=== PATIENT | female | born 1960 | race Caucasian/White ===

== ENCOUNTER 2018-09-15 18:28 | Inpatient (IN) | payer BC ==
[2018-09-15] MEDS ORDERED: Sodium Chloride 0.9% 1,000 ML IV ONE (18:38)
[2018-09-15] MEDS ORDERED: Ondansetron 4 MG/2 ML SDV IVPUSH PRN (18:57)
--- NOTE | 2018-09-15 19:03 | EDM.PDOC ---
ED HPI GENERAL MEDICAL PROBLEM - General Chief Complaint: Gastrointestinal Problem Stated Complaint: N/V/D Time Seen by Provider: 09/15/18 18:48 Source of Information: Reports: Patient History Limitations: Reports: No Limitations - History of Present Illness INITIAL COMMENTS - FREE TEXT/NARRATIVE: Alda is a 58 year old female who presents to the ED with c/o nausea, diarrhea, and bloody stools. She reports starting last evening around 0200 she started vomiting. Reports since then she has had episodes where she has been on the toilet for ~1 hour either vomiting or having loose stools. She reports she has been able to drink about 30 oz of water today. Has not had appetite. Denies any abdominal pain. She reports that just this evening she noticed that her diarrhea was bloody. Reports got to a point where it was just blood, without much feces. She does have container with obvious bright red blood. She denies any hemorrhoids. Has not noted fever, but does report had episode last night where she felt very warm and almost pre-syncopal. Does have 100.2 deg temp in ED. She reports she has never had a colonoscopy. Does have family history of colon cancer. Onset: Today Onset Date: 09/15/18 Onset Time: 02:00 Duration: Getting Worse Associated Symptoms: Reports: Fever/Chills, Headaches, Loss of Appetite, Nausea/ Vomiting. Denies: Confusion, Chest Pain, Cough, cough w sputum, Diaphoresis, Malaise, Rash, Seizure, Shortness of Breath, Syncope, Weakness - Related Data Allergies Allergy/AdvReac Type Severity Reaction Status Date / Time naproxen Allergy Itching Verified 09/15/18 18:58 CT contrast Allergy Facial Uncoded 09/15/18 23:39 Swelling Home Meds: Home Meds ALPRAZolam [Alprazolam] 0.25 - 0.5 mg PO BEDTIME PRN 09/15/18 [History] Acetaminophen [Acetaminophen 8 Hour] 650 mg PO Q4H PRN 09/15/18 [History] Albuterol Sulfate [Proair Hfa] 2 puff IH Q4H PRN 09/15/18 [History] Ascorbic Acid [Vitamin C] 1,000 mg PO DAILY 09/15/18 [History] Aspirin 81 mg PO DAILY 09/15/18 [History] B-Complex with Vitamin C [Super B Complex-Vitamin C] 1 each PO DAILY 09/15/18 [ History] Candesartan/Hydrochlorothiazid [Candesartan-Hctz 32-12.5 mg Tb] 1 each PO BEDTIME 09/15/18 [History] Cholecalciferol (Vitamin D3) [Vitamin D3] 4,000 unit PO DAILY 09/15/18 [History] Citalopram Hydrobromide [Celexa] 10 mg PO DAILY 09/15/18 [History] Ibuprofen 200 mg PO QAM 09/15/18 [History] Levothyroxine 112 mcg PO DAILY 09/15/18 [History] Magnesium 250 mg PO DAILY 09/15/18 [History] Pantoprazole Sodium 40 mg PO DAILY 09/15/18 [History] atorvaSTATin [Lipitor] 20 mg PO BEDTIME 09/15/18 [History] ED ROS GENERAL - Review of Systems Review Of Systems: See Below Constitutional: Reports: Fever, Weakness, Fatigue, Decreased Appetite HEENT: Reports: No Symptoms Respiratory: Reports: No Symptoms. Denies: Shortness of Breath, Cough Cardiovascular: Reports: Palpitations (tachycardia on presentation). Denies: Chest Pain Endocrine: Reports: No Symptoms GI/Abdominal: Reports: Bloody Stool, Diarrhea, Decreased Appetite, Hematochezia , Nausea, Vomiting. Denies: Abdominal Pain, Hematemesis : Reports: No Symptoms. Denies: Dysuria, Frequency, Hematuria, Urgency Musculoskeletal: Reports: No Symptoms Skin: Reports: No Symptoms Neurological: Reports: No Symptoms Psychiatric: Reports: No Symptoms Hematologic/Lymphatic: Reports: No Symptoms Immunologic: Reports: No Symptoms ED EXAM, GI/ABD - Physical Exam Exam: See Below Exam Limited By: No Limitations General Appearance: Alert, WD/WN, No Apparent Distress Head: Atraumatic, Normocephalic Neck: Normal Inspection, Supple, Non-Tender, Full Range of Motion Respiratory/Chest: No Respiratory Distress, Lungs Clear, Normal Breath Sounds, No Accessory Muscle Use, Chest Non-Tender Cardiovascular: Normal Peripheral Pulses, Regular Rate, Rhythm, No Edema, No Murmur, Tachycardia GI/Abdominal Exam: Normal Bowel Sounds, Soft, Non-Tender, No Organomegaly, No Distention Back Exam: Normal Inspection, Full Range of Motion. No: CVA Tenderness (L), CVA Tenderness (R) Extremities: Normal Inspection, Normal Range of Motion, Non-Tender, Normal Capillary Refill, No Pedal Edema Neurological: Alert, Oriented, CN II-XII Intact, Normal Cognition, Normal Gait, Normal Reflexes, No Motor/Sensory Deficits Psychiatric: Normal Affect, Normal Mood Skin Exam: Warm, Dry, Intact, Normal Color, No Rash Lymphatic: No Adenopathy Course - Vital Signs Last Recorded V/S: Last Vital Signs Temp 99 F 09/16/18 12:00 Pulse 80 09/16/18 12:00 Resp 16 09/16/18 12:00 BP 141/70 H 09/16/18 12:00 Pulse Ox 96 09/16/18 12:00 - Orders/Labs/Meds Orders: Active Orders 24 hr Category Date Time Status Abdomen Pelvis w Cont [CT] Stat Exams 09/15/18 19:25 Taken C DIFFICILE BY DNA [RM] Stat Lab 09/15/18 18:40 Ordered STOOL CULTURE [MREF] Stat Lab 09/15/18 18:40 Ordered Ondansetron [Zofran] Med 09/15/18 18:57 Active 4 mg IVPUSH Q6H PRN EKG 12 Lead [EK] Routine Ther 09/15/18 18:39 Stop Req Medication Orders Acetaminophen (Tylenol) 650 mg PO Q4H PRN PRN Reason: Pain (Mild 1-3)/fever Albuterol (Ventolin Hfa) 0 gm INH Q4H PRN PRN Reason: shortness of breath Alprazolam (Xanax) 0.25 - 0.5 mg PO BEDTIME PRN PRN Reason: Anxiety Atorvastatin Calcium (Lipitor) 20 mg PO BEDTIME [facility] Citalopram Hydrobromide (Celexa) 10 mg PO DAILY [facility] Last Admin: 09/16/18 13:42 Dose: 10 mg Hydrochlorothiazide (Hydrochlorothiazide) 12.5 mg PO BEDTIME [facility] Levofloxacin/Dextrose 500 mg/ (Premix) 100 mls @ 100 mls/hr IV Q24H [facility] Last Admin: 09/16/18 00:03 Dose: 100 mls/hr Metronidazole 500 mg/ Premix 100 mls @ 100 mls/hr IV Q8H [facility] Last Admin: 09/16/18 08:24 Dose: 100 mls/hr Infusion: 09/16/18 02:17 Dose: 100 mls/hr Admin: 09/16/18 01:17 Dose: 100 mls/hr Ibuprofen (Motrin) 800 mg PO Q6H PRN PRN Reason: Pain (mild 1-3) Levothyroxine Sodium (Levothyroxine) 112 mcg PO ACBREAKFAST KENDRA Last Admin: 09/16/18 13:42 Dose: 112 mcg Losartan Potassium (Cozaar) 100 mg PO BEDTIME [facility] Ondansetron HCl (Zofran) 4 mg IVPUSH Q6H PRN PRN Reason: Nausea Last Admin: 09/15/18 19:08 Dose: 4 mg Pantoprazole Sodium (Protonix Iv) 40 mg IVPUSH Q24H [facility] Last Admin: 09/16/18 13:42 Dose: 40 mg Labs: Laboratory Tests 09/15/18 09/15/18 09/15/18 Range/Units 18:38 18:38 18:38 WBC 8.6 (5.0-10.0) 10^3/uL RBC 4.16 (4.00-5.50) 10^6/uL Hgb 12.7 (12.0-16.0) g/dL Hct 39.0 (37.0-47.0) % MCV 93.8 (82.0-94.0) fL MCH 30.5 (27.0-32.0) pg MCHC 32.6 L (33.0-38.0) g/dL RDW Coeff of Jim 13.4 (11.0-15.0) % Plt Count 222 (150-400) 10^3/uL Neut % (Auto) 76.7 (35-85) % Lymph % (Auto) 15.2 (10-55) % Alfalfa % (Auto) 7.3 (0-16) % Eos % (Auto) 0.6 (0-5) % Baso % (Auto) 0.2 (0-3) % Neut # (Auto) 6.60 (1.80-7.00) 10^3/uL Lymph # (Auto) 1.31 (1.00-4.80) 10^3/uL Alfalfa # (Auto) 0.63 (0.00-0.80) 10^3/uL Eos # (Auto) 0.05 (0.00-0.45) 10^3/uL Baso # (Auto) 0.02 10^3/uL Sodium 140 (136-145) mEq/L Potassium 3.3 L D (3.5-5.0) mEq/L Chloride 102 (98-106) mEq/L Carbon Dioxide 25 (21-32) mmol/L BUN 13 (7-18) mg/dL Creatinine 0.9 (0.6-1.0) mg/dL Est Cr Clr Drug Dosing 61.31 mL/min Estimated GFR (MDRD) > 60 (>=60) mL/min Glucose 118 H (75-99) mg/dL Lactic Acid (0.4-2.0) mmol/L Calcium 9.2 (8.4-10.1) mg/dL Total Bilirubin 0.7 (0.0-1.0) mg/dL AST 31 (15-37) U/L ALT 46 (12-78) U/L Alkaline Phosphatase 89 (46-116) U/L C-Reactive Protein 2.2 H (0.2-0.8) mg/dL Total Protein 7.4 (6.4-8.2) g/dL Albumin 3.8 (3.4-5.0) g/dL Urine Color Yellow (YELLOW) Urine Appearance Clear (CLEAR) Urine pH 7.0 (4.5-8.0) Ur Specific [place] 1.015 (1.003-1.020) Urine Protein Negative (NEGATIVE) mg/dL Urine Glucose (UA) Negative (NEGATIVE) mg/dL Urine Ketones Trace H (NEGATIVE) mg/dL Urine Occult Blood Trace-intact H (NEGATIVE) Urine Nitrite Negative (NEGATIVE) Urine Bilirubin Negative (NEGATIVE) Urine Urobilinogen 0.2 (0.2-1.0) EU/dL Ur Leukocyte Esterase Negative (NEGATIVE) Urine RBC 0-5 (0-5) /HPF Urine WBC Not seen (0-5) /HPF 09/15/18 Range/Units 18:43 WBC (5.0-10.0) 10^3/uL RBC (4.00-5.50) 10^6/uL Hgb (12.0-16.0) g/dL Hct (37.0-47.0) % MCV (82.0-94.0) fL MCH (27.0-32.0) pg MCHC (33.0-38.0) g/dL RDW Coeff of Jim (11.0-15.0) % Plt Count (150-400) 10^3/uL Neut % (Auto) (35-85) % Lymph % (Auto) (10-55) % Alfalfa % (Auto) (0-16) % Eos % (Auto) (0-5) % Baso % (Auto) (0-3) % Neut # (Auto) (1.80-7.00) 10^3/uL Lymph # (Auto) (1.00-4.80) 10^3/uL Al[place]alfa # (Auto) (0.00-0.80) 10^3/uL Eos # (Auto) (0.00-0.45) 10^3/uL Baso # (Auto) 10^3/uL Sodium (136-145) mEq/L Potassium (3.5-5.0) mEq/L Chloride (98-106) mEq/L Carbon Dioxide (21-32) mmol/L BUN (7-18) mg/dL Creatinine (0.6-1.0) mg/dL Est Cr Clr Drug Dosing mL/min Estimated GFR (MDRD) (>=60) mL/min Glucose (75-99) mg/dL Lactic Acid 3.2 H (0.4-2.0) mmol/L Calcium (8.4-10.1) mg/dL Total Bilirubin (0.0-1.0) mg/dL AST (15-37) U/L ALT (12-78) U/L Alkaline Phosphatase (46-116) U/L C-Reactive Protein (0.2-0.8) mg/dL Total Protein (6.4-8.2) g/dL Albumin (3.4-5.0) g/dL Urine Color (YELLOW) Urine Appearance (CLEAR) Urine pH (4.5-8.0) Ur Specific [place] (1.003-1.020) Urine Protein (NEGATIVE) mg/dL Urine Glucose (UA) (NEGATIVE) mg/dL Urine Ketones (NEGATIVE) mg/dL Urine Occult Blood (NEGATIVE) Urine Nitrite (NEGATIVE) Urine Bilirubin (NEGATIVE) Urine Urobilinogen (0.2-1.0) EU/dL Ur Leukocyte Esterase (NEGATIVE) Urine RBC (0-5) /HPF Urine WBC (0-5) /HPF Meds: Medications Generic Name Dose Route Start Last Admin Trade Name Freq PRN Reason Stop Dose Admin Acetaminophen 650 mg 09/15/18 23:31 Tylenol PO Q4H PRN Pain (Mild 1-3)/fever Albuterol 0 gm 09/16/18 12:30 Ventolin Hfa INH Q4H PRN shortness of breath Alprazolam 0.25 - 0.5 mg 09/16/18 12:23 Xanax PO BEDTIME PRN Anxiety Atorvastatin Calcium 20 mg 09/16/18 20:00 Lipitor PO BEDTIME KENDRA Citalopram Hydrobromide 10 mg 09/16/18 12:30 09/16/18 13:42 Celexa PO 10 mg DAILY KENDRA Administration Hydrochlorothiazide 12.5 mg 09/16/18 20:00 Hydrochlorothiazide PO BEDTIME KENDRA Levofloxacin/Dextrose 500 mg/ 100 mls @ 100 mls/hr 09/15/18 23:31 09/16/18 00 :03 Premix IV 100 mls/hr Q24H KENDRA Administration Metronidazole 500 mg/ Premix 100 mls @ 100 mls/hr 09/16/18 00:00 09/16/18 08: 24 IV 100 mls/hr Q8H KEN[facility] Administration Ibuprofen 800 mg 09/15/18 23:31 Motrin PO Q6H PRN Pain (mild 1-3) Levothyroxine Sodium 112 mcg 09/16/18 12:30 09/16/18 13:42 Levothyroxine PO 112 mcg ACBREAKFAST KENDRA Administration Losartan Potassium 100 mg 09/16/18 20:00 Cozaar PO BEDTIME KENDRA Ondansetron HCl 4 mg 09/15/18 18:57 09/15/18 19:08 Zofran IVPUSH 4 mg Q6H PRN Administration Nausea Pantoprazole Sodium 40 mg 09/16/18 12:30 09/16/18 13:42 Protonix Iv IVPUSH 40 mg Q24H KENDRA Administration Discontinued Medications Generic Name Dose Route Start Last Admin Trade Name Freq PRN Reason Stop Dose Admin Enoxaparin Sodium 40 mg 09/15/18 23:31 09/16/18 00:31 Lovenox SUBCUT Not Given Q24H KENDRA Sodium Chloride 1,000 mls @ 999 mls/hr 09/15/18 18:38 02/23/19 18:55 Normal Saline IV 09/15/18 19:38 999 mls/hr .BOLUS ONE Administration Metronidazole 500 mg/ Premix 100 mls @ 100 mls/hr 09/15/18 23:31 09/16/18 00: 31 IV Not Given Q8H KENDRA Sodium Chloride 1,000 mls @ 75 mls/hr 09/15/18 23:31 09/16/18 00:03 Normal Saline IV 75 mls/hr ASDIRECTED KENDRA Administration Iopamidol 100 ml 09/15/18 22:18 09/15/18 22:29 Isovue-300 (61%) IVPUSH 09/15/18 22:19 100 ml ONETIME ONE Administration - Radiology Interpretation Free Text/Narrative:: CT reveals moderate length of colitis, favorable to be infectious/inflammatory. CT Results Date: 09/15/18 CT Results Time: 23:13 - Re-Assessments/Exams Free Text/Narrative Re-Assessment/Exam: 09/15/18 19:26 Labs stable except elevated lactic acid to 3.2. In presence of GI bleed, diarrhea, tachycardia, and fever, will proceed with CT abdomen/pelvis. Will keep patient in extended ED pending CT results. Pulse improved to upper 90s. Patient started to drink oral contrast. 09/15/18 23:[address] with [address] results. Ct reveals moderate length of colitis, favorable to be infectious/inflammatory. No evidence of ischemia. Will admit acute for IVF and antibiotics. Free Text/Narrative Re-Assessment/Exam: PLEASE SEE NURSES NOTE FOR PMH, PSH, SH, & FH. Departure - Departure Time of Disposition: 23:13 Disposition: Admitted As Inpatient 66 Condition: Good Clinical Impression: Colitis, Lower GI bleed Hypertension Qualifiers: Hypertension type: essential hypertension Qualified Code(s): I10 - Essential ( primary) hypertension - Discharge Information *PRESCRIPTION DRUG MONITORING PROGRAM REVIEWED*: Not Applicable *COPY OF PRESCRIPTION DRUG MONITORING REPORT IN PATIENT [place]: Not Applicable - Problem List & Annotations (1) Colitis SNOMED Code(s): 45552127 Code(s): K52.9 - NONINFECTIVE GASTROENTERITIS AND COLITIS, UNSPECIFIED Status: Acute Current Visit: Yes (2) Hypertension SNOMED Code(s): 40180972 Code(s): I10 - ESSENTIAL (PRIMARY) HYPERTENSION Status: Acute Current Visit: Yes Qualifiers: Hypertension type: essential hypertension Qualified Code(s): I10 - Essential (primary) hypertension (3) Lower GI bleed SNOMED Code(s): 71979936 Code(s): K92.2 - GASTROINTESTINAL HEMORRHAGE, UNSPECIFIED Status: Acute Current Visit: Yes - Problem List Review Problem List Initiated/Reviewed/Updated: Yes - My Orders Last 24 Hours: My Active Orders 09/15/18 18:39 EKG 12 Lead [EK] Routine 09/15/18 18:40 C DIFFICILE BY DNA [RM] Stat STOOL CULTURE [MREF] Stat 09/15/18 18:57 Ondansetron [Zofran] 4 mg IVPUSH Q6H PRN 09/15/18 19:25 Abdomen Pelvis w Cont [CT] Stat - Assessment/Plan Admission H&P: Please use this note as an admission H&P Last 24 Hours: My Active Orders 09/15/18 18:39 EKG 12 Lead [EK] Routine 09/15/18 18:40 C DIFFICILE BY DNA [RM] Stat STOOL CULTURE [MREF] Stat 09/15/18 18:57 Ondansetron [Zofran] 4 mg IVPUSH Q6H PRN 09/15/18 19:25 Abdomen Pelvis w Cont [CT] Stat Plan: CT reveals moderate length of colitis, likely infectious/inflammatory. No evidence of ischemia. Gross blood in stool. Patient will need colonoscopy in future. Hemoglobin stable at 12.7. Will admit acute for IVF and IV antibiotics. Stool studies pending. Repeat labs in am. Anticipate length of stay 2-3 days.
[2018-09-15 19:14] LABS: CHLORIDE,CL 102 mEq/L (98-106); SODIUM,NA 140 mEq/L (136-145)
[2018-09-15] MEDS ORDERED: Iopamidol 612 MG/ML 100 ML Bottle IVPUSH ONE (22:18)
[2018-09-15] MEDS ORDERED: metroNIDAZOLE/Normal Saline 500 MG in Premix Bag 1 BAG IV SCH (23:31)
[2018-09-15] MEDS ORDERED: Acetaminophen 325 MG Tab PO PRN (23:31)
[2018-09-15] MEDS ORDERED: Ibuprofen 200 MG Tab PO PRN (23:31)
[2018-09-15] MEDS ORDERED: Enoxaparin 40 MG/0.4 ML Syringe SUBCUT SCH (23:31)
[2018-09-15] MEDS ORDERED: Sodium Chloride 0.9% 1,000 ML IV SCH (23:31)
[2018-09-16] MEDS: Levofloxacin/Dextrose 5%-Water 500 MG in Premix Bag 1 BAG IV SCH (00:03)
[2018-09-16] MEDS: metroNIDAZOLE/Normal Saline 500 MG in Premix Bag 1 BAG IV SCH ×4 (01:17→23:34)
[2018-09-16 08:17] LABS: CHLORIDE,CL 105 mEq/L (98-106); SODIUM,NA 144 mEq/L (136-145)
--- NOTE | 2018-09-16 11:22 | PCM.PN ---
- General Info Date of Service: 09/16/18 Subjective Update: Alda is a 58 year old female who was admitted from the ED last evening with colitis and hematochezia. She reports she is feeling much better this morning. Does note she had one small bloody stool throughout the night, but nothing more since admit. She reports she is no longer nauseated. Denies any abdominal pain. Has been tolerating clear liquids. Does report she does not feel hungry, but has been drinking ok. No fevers. VSS. No other complaints. Functional Status: Reports: Pain Controlled, Tolerating Diet, Ambulating, Urinating. Denies: New Symptoms - Review of Systems General: Reports: No Symptoms. Denies: Fever, Weakness, Fatigue, Malaise, Chills HEENT: Reports: No Symptoms Pulmonary: Reports: No Symptoms. Denies: Shortness of Breath, Pleuritic Chest Pain, Cough, Sputum, Hemoptysis, Wheezing Cardiovascular: Reports: No Symptoms. Denies: Chest Pain, Dyspnea on Exertion, Edema, Lightheadedness Gastrointestinal: Reports: Decreased Appetite, Diarrhea, Hematochezia. Denies: Abdominal Pain, Melena, Nausea, Vomiting Genitourinary: Reports: No Symptoms. Denies: Dysuria, Frequency, Urgency Musculoskeletal: Reports: No Symptoms Skin: Reports: No Symptoms Neurological: Reports: No Symptoms Psychiatric: Reports: No Symptoms - Patient Data Vitals - Most Recent: Last Vital Signs Temp 97.9 F 09/16/18 08:00 Pulse 84 09/16/18 08:00 Resp 16 09/16/18 08:00 BP 136/79 09/16/18 08:00 Pulse Ox 95 09/16/18 08:00 Weight - Most Recent: 235 lb 12.8 oz I&O - Last 24 Hours: Intake & Output 09/15/18 09/16/18 09/16/18 22:59 06:59 14:59 Intake Total 100 Balance 100 Lab Results Last 24 Hours: Laboratory Results - last 24 hr 09/15/18 09/15/18 09/15/18 Range/Units 18:38 18:38 18:38 WBC 8.6 (5.0-10.0) 10^3/uL RBC 4.16 (4.00-5.50) 10^6/uL Hgb 12.7 (12.0-16.0) g/dL Hct 39.0 (37.0-47.0) % MCV 93.8 (82.0-94.0) fL MCH 30.5 (27.0-32.0) pg MCHC 32.6 L (33.0-38.0) g/dL RDW Coeff of Jim 13.4 (11.0-15.0) % Plt Count 222 (150-400) 10^3/uL Neut % (Auto) 76.7 (35-85) % Lymph % (Auto) 15.2 (10-55) % Curry % (Auto) 7.3 (0-16) % Eos % (Auto) 0.6 (0-5) % Baso % (Auto) 0.2 (0-3) % Neut # (Auto) 6.60 (1.80-7.00) 10^3/uL Lymph # (Auto) 1.31 (1.00-4.80) 10^3/uL Curry # (Auto) 0.63 (0.00-0.80) 10^3/uL Eos # (Auto) 0.05 (0.00-0.45) 10^3/uL Baso # (Auto) 0.02 10^3/uL Sodium 140 (136-145) mEq/L Potassium 3.3 L D (3.5-5.0) mEq/L Chloride 102 (98-106) mEq/L Carbon Dioxide 25 (21-32) mmol/L BUN 13 (7-18) mg/dL Creatinine 0.9 (0.6-1.0) mg/dL Est Cr Clr Drug Dosing 61.31 mL/min Estimated GFR (MDRD) > 60 (>=60) mL/min Glucose 118 H (75-99) mg/dL Lactic Acid (0.4-2.0) mmol/L Calcium 9.2 (8.4-10.1) mg/dL Total Bilirubin 0.7 (0.0-1.0) mg/dL AST 31 (15-37) U/L ALT 46 (12-78) U/L Alkaline Phosphatase 89 (46-116) U/L C-Reactive Protein 2.2 H (0.2-0.8) mg/dL Total Protein 7.4 (6.4-8.2) g/dL Albumin 3.8 (3.4-5.0) g/dL Urine Color Yellow (YELLOW) Urine Appearance Clear (CLEAR) Urine pH 7.0 (4.5-8.0) Ur Specific Webster 1.015 (1.003-1.020) Urine Protein Negative (NEGATIVE) mg/dL Urine Glucose (UA) Negative (NEGATIVE) mg/dL Urine Ketones Trace H (NEGATIVE) mg/dL Urine Occult Blood Trace-intact H (NEGATIVE) Urine Nitrite Negative (NEGATIVE) Urine Bilirubin Negative (NEGATIVE) Urine Urobilinogen 0.2 (0.2-1.0) EU/dL Ur Leukocyte Esterase Negative (NEGATIVE) Urine RBC 0-5 (0-5) /HPF Urine WBC Not seen (0-5) /HPF 09/15/18 09/16/18 09/16/18 Range/Units 18:43 08:17 08:17 WBC 8.8 (5.0-10.0) 10^3/uL RBC 3.65 L (4.00-5.50) 10^6/uL Hgb 11.2 L (12.0-16.0) g/dL Hct 35.3 L (37.0-47.0) % MCV 96.7 H (82.0-94.0) fL MCH 30.7 (27.0-32.0) pg MCHC 31.7 L (33.0-38.0) g/dL RDW Coeff of Jim 13.7 (11.0-15.0) % Plt Count 190 (150-400) 10^3/uL Neut % (Auto) 69.8 (35-85) % Lymph % (Auto) 19.2 (10-55) % Curry % (Auto) 9.9 (0-16) % Eos % (Auto) 1.0 (0-5) % Baso % (Auto) 0.1 (0-3) % Neut # (Auto) 6.15 (1.80-7.00) 10^3/uL Lymph # (Auto) 1.69 (1.00-4.80) 10^3/uL Curry # (Auto) 0.87 H (0.00-0.80) 10^3/uL Eos # (Auto) 0.09 (0.00-0.45) 10^3/uL Baso # (Auto) 0.01 10^3/uL Sodium 144 (136-145) mEq/L Potassium 3.8 (3.5-5.0) mEq/L Chloride 105 (98-106) mEq/L Carbon Dioxide 28 (21-32) mmol/L BUN 8 (7-18) mg/dL Creatinine 0.8 (0.6-1.0) mg/dL Est Cr Clr Drug Dosing 55.06 mL/min Estimated GFR (MDRD) > 60 (>=60) mL/min Glucose 121 H (75-99) mg/dL Lactic Acid 3.2 H (0.4-2.0) mmol/L Calcium 8.4 (8.4-10.1) mg/dL Total Bilirubin (0.0-1.0) mg/dL AST (15-37) U/L ALT (12-78) U/L Alkaline Phosphatase (46-116) U/L C-Reactive Protein 3.0 H (0.2-0.8) mg/dL Total Protein (6.4-8.2) g/dL Albumin (3.4-5.0) g/dL Urine Color (YELLOW) Urine Appearance (CLEAR) Urine pH (4.5-8.0) Ur Specific Webster (1.003-1.020) Urine Protein (NEGATIVE) mg/dL Urine Glucose (UA) (NEGATIVE) mg/dL Urine Ketones (NEGATIVE) mg/dL Urine Occult Blood (NEGATIVE) Urine Nitrite (NEGATIVE) Urine Bilirubin (NEGATIVE) Urine Urobilinogen (0.2-1.0) EU/dL Ur Leukocyte Esterase (NEGATIVE) Urine RBC (0-5) /HPF Urine WBC (0-5) /HPF 09/16/18 Range/Units 08:17 WBC (5.0-10.0) 10^3/uL RBC (4.00-5.50) 10^6/uL Hgb (12.0-16.0) g/dL Hct (37.0-47.0) % MCV (82.0-94.0) fL MCH (27.0-32.0) pg MCHC (33.0-38.0) g/dL RDW Coeff of Jim (11.0-15.0) % Plt Count (150-400) 10^3/uL Neut % (Auto) (35-85) % Lymph % (Auto) (10-55) % Curry % (Auto) (0-16) % Eos % (Auto) (0-5) % Baso % (Auto) (0-3) % Neut # (Auto) (1.80-7.00) 10^3/uL Lymph # (Auto) (1.00-4.80) 10^3/uL Curry # (Auto) (0.00-0.80) 10^3/uL Eos # (Auto) (0.00-0.45) 10^3/uL Baso # (Auto) 10^3/uL Sodium (136-145) mEq/L Potassium (3.5-5.0) mEq/L Chloride (98-106) mEq/L Carbon Dioxide (21-32) mmol/L BUN (7-18) mg/dL Creatinine (0.6-1.0) mg/dL Est Cr Clr Drug Dosing mL/min Estimated GFR (MDRD) (>=60) mL/min Glucose (75-99) mg/dL Lactic Acid 1.7 (0.4-2.0) mmol/L Calcium (8.4-10.1) mg/dL Total Bilirubin (0.0-1.0) mg/dL AST (15-37) U/L ALT (12-78) U/L Alkaline Phosphatase (46-116) U/L C-Reactive Protein (0.2-0.8) mg/dL Total Protein (6.4-8.2) g/dL Albumin (3.4-5.0) g/dL Urine Color (YELLOW) Urine Appearance (CLEAR) Urine pH (4.5-8.0) Ur Specific Webster (1.003-1.020) Urine Protein (NEGATIVE) mg/dL Urine Glucose (UA) (NEGATIVE) mg/dL Urine Ketones (NEGATIVE) mg/dL Urine Occult Blood (NEGATIVE) Urine Nitrite (NEGATIVE) Urine Bilirubin (NEGATIVE) Urine Urobilinogen (0.2-1.0) EU/dL Ur Leukocyte Esterase (NEGATIVE) Urine RBC (0-5) /HPF Urine WBC (0-5) /HPF Med Orders - Current: Current Medications Acetaminophen (Tylenol) 650 mg PO Q4H PRN PRN Reason: Pain (Mild 1-3)/fever Levofloxacin/Dextrose 500 mg/ (Premix) 100 mls @ 100 mls/hr IV Q24H [facility] Last Admin: 09/16/18 00:03 Dose: 100 mls/hr Sodium Chloride (Normal Saline) 1,000 mls @ 75 mls/hr IV ASDIRECTED [facility] Last Admin: 09/16/18 00:03 Dose: 75 mls/hr Metronidazole 500 mg/ Premix 100 mls @ 100 mls/hr IV Q8H [facility] Last Admin: 09/16/18 08:24 Dose: 100 mls/hr Ibuprofen (Motrin) 800 mg PO Q6H PRN PRN Reason: Pain (mild 1-3) Ondansetron HCl (Zofran) 4 mg IVPUSH Q6H PRN PRN Reason: Nausea Last Admin: 09/15/18 19:08 Dose: 4 mg Discontinued Medications Enoxaparin Sodium (Lovenox) 40 mg SUBCUT Q24H [facility] Last Admin: 09/16/18 00:31 Dose: Not Given Sodium Chloride (Normal Saline) 1,000 mls @ 999 mls/hr IV .BOLUS ONE Stop: 09/15/18 19:38 Last Admin: 09/15/18 18:55 Dose: 999 mls/hr Metronidazole 500 mg/ Premix 100 mls @ 100 mls/hr IV Q8H [facility] Last Admin: 09/16/18 00:31 Dose: Not Given Iopamidol (Isovue-300 (61%)) 100 ml IVPUSH ONETIME ONE Stop: 09/15/18 22:19 Last Admin: 09/15/18 22:29 Dose: 100 ml - Exam Quality Assessment: DVT Prophylaxis General: Alert, Oriented, No Acute Distress Neck: Supple Lungs: Clear to Auscultation, Normal Respiratory Effort Cardiovascular: Regular Rate, Regular Rhythm GI/Abdominal Exam: Normal Bowel Sounds, Soft, Non-Tender, No Distention, No Mass Back Exam: Normal Inspection, Full Range of Motion Extremities: Normal Inspection, Normal Range of Motion, Non-Tender, No Pedal Edema, Normal Capillary Refill Skin: Warm, Dry Neurological: No New Focal Deficit Psy/Mental Status: Alert, Normal Affect, Normal Mood - Problem List & Annotations (1) Colitis SNOMED Code(s): 53167351 Code(s): K52.9 - NONINFECTIVE GASTROENTERITIS AND COLITIS, UNSPECIFIED Status: Acute Current Visit: Yes (2) Hypertension SNOMED Code(s): 73214626 Code(s): I10 - ESSENTIAL (PRIMARY) HYPERTENSION Status: Acute Current Visit: Yes Qualifiers: Hypertension type: essential hypertension Qualified Code(s): I10 - Essential (primary) hypertension (3) Lower GI bleed SNOMED Code(s): 42019409 Code(s): K92.2 - GASTROINTESTINAL HEMORRHAGE, UNSPECIFIED Status: Acute Current Visit: Yes - Problem List Review Problem List Initiated/Reviewed/Updated: Yes - My Orders Last 24 Hours: My Active Orders 09/15/18 18:39 EKG 12 Lead [EK] Routine 09/15/18 18:40 C DIFFICILE BY DNA [RM] Stat STOOL CULTURE [MREF] Stat 09/15/18 18:57 Ondansetron [Zofran] 4 mg IVPUSH Q6H PRN 09/15/18 19:25 Abdomen Pelvis w Cont [CT] Stat 09/15/18 23:16 Resuscitation Status Routine 09/15/18 23:31 Patient Status [ADT] Routine Oxygen Therapy [RC] .PRN Pulse Oximetry [RC] .PRN Up ad Yara [RC] .PRN Vital Signs [RC] 0800,1200,1600,2000,0000,0400 Acetaminophen [Tylenol] 650 mg PO Q4H PRN Ibuprofen [Motrin] 800 mg PO Q6H PRN Levofloxacin/Dextrose 5%-Water [Levaquin in D5W 500 MG/100 ML] 500 mg Premix Bag 1 bag IV Q24H Sodium Chloride 0.9% [Normal Saline] 1,000 ml IV ASDIRECTED 09/15/18 23:49 Antiembolic Devices [RC] 1000,2200 RICHARD Hose [Antiembolic Hose] [OM.PC] Routine 09/16/18 00:00 metroNIDAZOLE/Normal Saline [Flagyl 500 MG in NS 100 ML] 500 mg Premix Bag 1 bag IV Q8H 09/17/18 07:00 BASIC METABOLIC PANEL,BMP [CHEM] DAILY C-REACTIVE PROTEIN [CHEM] DAILY CBC WITH AUTO DIFF [HEME] DAILY 09/18/18 07:00 BASIC METABOLIC PANEL,BMP [CHEM] DAILY C-REACTIVE PROTEIN [CHEM] DAILY CBC WITH AUTO DIFF [HEME] DAILY - Plan Plan:: Patient has been tolerating clear liquids and has had good oral intake. VSS. Will saline lock IV. Continue IV Levaquin and Flagyl. Labs stable. Lactic acid improved from 3.2 to 1.7. CRP 3.0 today, up from 2.2 yesterday. Hgb stable at 11.2, drop from 12.7, suspect some dilution as patient has been recieving IVF. K stable at 3.8. Will continue to monitor labs. Discussed with patient that she will need colonoscopy in near future. Will keep on clear liquid diet at this time. Anticipate discharge 1-2 days. Discharge inappropriate as patient is recieving IVF.
[2018-09-16] MEDS ORDERED: ALPRAZolam 0.25 MG Tab PO PRN (12:23)
[2018-09-16] MEDS ORDERED: Albuterol 8 GM Inhaler INH PRN (12:30)
[2018-09-16] MEDS ORDERED: Pantoprazole 40 MG Vial IVPUSH SCH (12:30)
[2018-09-16] MEDS: Citalopram 10 MG Tab PO SCH (13:42)
[2018-09-16] MEDS: Levothyroxine 112 MCG Tab PO SCH (13:42)
[2018-09-16] MEDS ORDERED: atorvaSTATin 20 MG Tab PO SCH (20:00)
[2018-09-16] MEDS ORDERED: Losartan 100 MG Tab PO SCH (20:00)
[2018-09-16] MEDS ORDERED: Hydrochlorothiazide 12.5 MG Cap PO SCH (20:00)
[2018-09-17] MEDS: Levofloxacin/Dextrose 5%-Water 500 MG in Premix Bag 1 BAG IV SCH (00:20)
[2018-09-17] MEDS: Levothyroxine 112 MCG Tab PO SCH (06:32)
[2018-09-17] MEDS: metroNIDAZOLE/Normal Saline 500 MG in Premix Bag 1 BAG IV SCH (07:39)
[2018-09-17] MEDS: Citalopram 10 MG Tab PO SCH (07:41)
[2018-09-17 08:10] LABS: CHLORIDE,CL 103 mEq/L (98-106); SODIUM,NA 143 mEq/L (136-145)
--- NOTE | 2018-09-17 10:13 | PCM.DCSUM1 ---
Discharge Summary - Hospital Course Free Text/Narrative:: Patient presented to ER with complaints of nausea, diarrhea, and bloody stools. Had started vomiting and had ongoing stools that persisted for over an hour. Unable to drink much for fluids, no appetite. No abdominal pain. No fevers at home but was running temp of 100.2 on presentation to ER. Noticed as the day wore on, diarrhea was bloody in natures. It had gotten to the point where she was passing just blood without much feces. No known history of hemorrhoids. No previous colonoscopy. Does have a family history of colon cancer. Labs were stable except she had an elevated lactic acid to 3.2. Did proceed with CT scan of abdomen, reveals moderate length of colitis, likely infectious or inflammatory in nature. No evidence of ischemia. Hemoglobin was stable at 12.7 Diagnosis: Stroke: No Modified Arvind Scale: No Symptoms at All Modified Swain Scale Score: 0 - Discharge Data Discharge Date: 09/17/18 Discharge Disposition: Home, Self-Care 01 Condition: Good - Patient Summary/Data Complications: none Hospital Course: Patient doing well. No further bloody stools. Had one small stool yesterday, only minimal blood noted. Has been on IV Flagyl and Levaquin. Clear liquid diet. Denies any abdominal pain this am. No fevers. Denies any nausea this am. Abdomen is soft, nontender with palpation. Labs note WBC of 7.8. Hemoglobin of 10.9. CRP of 4.0. Will discharge home on Flagyl and Levaquin. Proceed with colonoscopy on Monday. Follow up with Brooke Robertson for results and hospital recheck. - Patient Instructions Diet: Usual Diet as Tolerated Activity: As Tolerated - Discharge Plan *PRESCRIPTION DRUG MONITORING PROGRAM REVIEWED*: Not Applicable *COPY OF PRESCRIPTION DRUG MONITORING REPORT IN PATIENT [place]: Not Applicable Prescriptions/Med Rec: Levofloxacin [Levaquin] 500 mg PO DAILY #7 tablet metroNIDAZOLE [Flagyl] 250 mg PO Q8H #21 tablet Home Medications: Home Meds ALPRAZolam [Alprazolam] 0.25 - 0.5 mg PO BEDTIME PRN 09/15/18 [History] Acetaminophen [Acetaminophen 8 Hour] 650 mg PO Q4H PRN 09/15/18 [History] Albuterol Sulfate [Proair Hfa] 2 puff IH Q4H PRN 09/15/18 [History] Ascorbic Acid [Vitamin C] 1,000 mg PO DAILY 09/15/18 [History] Aspirin 81 mg PO DAILY 09/15/18 [History] B-Complex with Vitamin C [Super B Complex-Vitamin C] 1 each PO DAILY 09/15/18 [ History] Candesartan/Hydrochlorothiazid [Candesartan-Hctz 32-12.5 mg Tb] 1 each PO BEDTIME 09/15/18 [History] Cholecalciferol (Vitamin D3) [Vitamin D3] 4,000 unit PO DAILY 09/15/18 [History] Citalopram Hydrobromide [Celexa] 10 mg PO DAILY 09/15/18 [History] Levothyroxine 112 mcg PO DAILY 09/15/18 [History] Magnesium 250 mg PO DAILY 09/15/18 [History] Pantoprazole Sodium 40 mg PO DAILY 09/15/18 [History] atorvaSTATin [Lipitor] 20 mg PO BEDTIME 09/15/18 [History] Levofloxacin [Levaquin] 500 mg PO DAILY #7 tablet 09/17/18 [Rx] metroNIDAZOLE [Flagyl] 250 mg PO Q8H #21 tablet 09/17/18 [Rx] Patient Handouts: Colitis Forms: ED Department Discharge Referrals: Brooke Robertson PA-C [Primary Care Provider] - (Follow up with Brooke Robertson in 10 days for hospital follow up/follow up colonoscopy) - Discharge Summary/Plan Comment DC Time >30 min.: No - General Info Date of Service: 09/17/18 Admission Dx/Problem (Free Text: Colitis Functional Status: Reports: Pain Controlled, Tolerating Diet (tolerating clear liquids), Ambulating - Review of Systems General: Denies: Weakness, Fatigue, Malaise HEENT: Reports: No Symptoms Pulmonary: Denies: Shortness of Breath, Cough Cardiovascular: Denies: Chest Pain, Edema, Lightheadedness Gastrointestinal: Denies: Abdominal Pain, Nausea, Vomiting Genitourinary: Reports: No Symptoms Musculoskeletal: Reports: No Symptoms Skin: Reports: No Symptoms Neurological: Reports: No Symptoms - Patient Data Vitals - Most Recent: Last Vital Signs Temp 97.8 F 09/17/18 08:00 Pulse 73 09/17/18 08:00 Resp 16 09/17/18 08:00 BP 118/68 09/17/18 08:00 Pulse Ox 97 09/17/18 08:00 Weight - Most Recent: 235 lb 12.8 oz I&O - Last 24 hours: Intake & Output 09/16/18 09/17/18 09/17/18 22:59 06:59 14:59 Intake Total 100 100 200 Balance 100 100 200 Lab Results - Last 24 hrs: Laboratory Results - last 24 hr 09/17/18 09/17/18 Range/Units 07:05 07:15 WBC 7.8 (5.0-10.0) 10^3/uL RBC 3.56 L (4.00-5.50) 10^6/uL Hgb 10.9 L (12.0-16.0) g/dL Hct 34.4 L (37.0-47.0) % MCV 96.6 H (82.0-94.0) fL MCH 30.6 (27.0-32.0) pg MCHC 31.7 L (33.0-38.0) g/dL RDW Coeff of Jim 13.8 (11.0-15.0) % Plt Count 178 (150-400) 10^3/uL Neut % (Auto) 67.2 (35-85) % Lymph % (Auto) 23.0 (10-55) % Mccreary % (Auto) 8.0 (0-16) % Eos % (Auto) 1.5 (0-5) % Baso % (Auto) 0.3 (0-3) % Neut # (Auto) 5.27 (1.80-7.00) 10^3/uL Lymph # (Auto) 1.80 (1.00-4.80) 10^3/uL Mccreary # (Auto) 0.63 (0.00-0.80) 10^3/uL Eos # (Auto) 0.12 (0.00-0.45) 10^3/uL Baso # (Auto) 0.02 10^3/uL Sodium 143 (136-145) mEq/L Potassium 3.7 (3.5-5.0) mEq/L Chloride 103 (98-106) mEq/L Carbon Dioxide 30 (21-32) mmol/L BUN 6 L (7-18) mg/dL Creatinine 0.7 (0.6-1.0) mg/dL Est Cr Clr Drug Dosing 62.92 mL/min Estimated GFR (MDRD) > 60 (>=60) mL/min Glucose 123 H (75-99) mg/dL Calcium 8.6 (8.4-10.1) mg/dL C-Reactive Protein 4.0 H (0.2-0.8) mg/dL Med Orders - Current: Current Medications Acetaminophen (Tylenol) 650 mg PO Q4H PRN PRN Reason: Pain (Mild 1-3)/fever Last Admin: 09/17/18 04:02 Dose: 650 mg Albuterol (Ventolin Hfa) 0 gm INH Q4H PRN PRN Reason: shortness of breath Alprazolam (Xanax) 0.25 - 0.5 mg PO BEDTIME PRN PRN Reason: Anxiety Atorvastatin Calcium (Lipitor) 20 mg PO BEDTIME [facility] Last Admin: 09/16/18 19:27 Dose: 20 mg Citalopram Hydrobromide (Celexa) 10 mg PO DAILY [facility] Last Admin: 09/17/18 07:41 Dose: 10 mg Hydrochlorothiazide (Hydrochlorothiazide) 12.5 mg PO BEDTIME [facility] Last Admin: 09/16/18 19:28 Dose: 12.5 mg Levofloxacin/Dextrose 500 mg/ (Premix) 100 mls @ 100 mls/hr IV Q24H [facility] Last Admin: 09/17/18 00:20 Dose: 100 mls/hr Metronidazole 500 mg/ Premix 100 mls @ 100 mls/hr IV Q8H [facility] Last Admin: 09/17/18 07:39 Dose: 100 mls/hr Ibuprofen (Motrin) 800 mg PO Q6H PRN PRN Reason: Pain (mild 1-3) Levothyroxine Sodium (Levothyroxine) 112 mcg PO ACBREAKFAST [facility] Last Admin: 09/17/18 06:32 Dose: 112 mcg Losartan Potassium (Cozaar) 100 mg PO BEDTIME [facility] Last Admin: 09/16/18 19:27 Dose: 100 mg Ondansetron HCl (Zofran) 4 mg IVPUSH Q6H PRN PRN Reason: Nausea Last Admin: 09/15/18 19:08 Dose: 4 mg Pantoprazole Sodium (Protonix Iv) 40 mg IVPUSH Q24H [facility] Last Admin: 09/16/18 13:42 Dose: 40 mg Discontinued Medications Enoxaparin Sodium (Lovenox) 40 mg SUBCUT Q24H [facility] Last Admin: 09/16/18 00:31 Dose: Not Given Sodium Chloride (Normal Saline) 1,000 mls @ 999 mls/hr IV .BOLUS ONE Stop: 09/15/18 19:38 Last Admin: 09/15/18 18:55 Dose: 999 mls/hr Metronidazole 500 mg/ Premix 100 mls @ 100 mls/hr IV Q8H [facility] Last Admin: 09/16/18 00:31 Dose: Not Given Sodium Chloride (Normal Saline) 1,000 mls @ 75 mls/hr IV ASDIRECTED [facility] Last Admin: 09/16/18 00:03 Dose: 75 mls/hr Iopamidol (Isovue-300 (61%)) 100 ml IVPUSH ONETIME ONE Stop: 09/15/18 22:19 Last Admin: 09/15/18 22:29 Dose: 100 ml - Exam General: Reports: Alert, Oriented HEENT: Reports: Mucous Membr. Moist/[place] Neck: Reports: Supple Lungs: Reports: Clear to Auscultation, Normal Respiratory Effort Cardiovascular: Reports: Regular Rate, Regular Rhythm GI/Abdominal Exam: Normal Bowel Sounds, Soft, Non-Tender Extremities: Normal Inspection, No Pedal Edema Skin: Reports: Warm, Dry Neurological: Reports: No New Focal Deficit
== END 2018-09-17 11:30 | disposition home or self-care (01) | DRG 249 ==
LOC: CC.ED 18:28 → CC.MS 23:15 → UNDOADMIN 23:15 → CC.MS 23:16
PROVIDERS: ADMIT Nurse Practitioner Family; ATTEND Family Medicine
DX: K52.9 Noninfective gastroenteritis and colitis, unspecified (principal); I10 Essential (primary) hypertension; Z79.82 Long term (current) use of aspirin; Z79.899 Other long term (current) drug therapy; Z88.8 Allergy status to other drugs, medicaments and biological substances; Z91.041 Radiographic dye allergy status
CPT/HCPCS: 36415; 74177; 80048; 80053; 81001; 83605; 85025; 86140; 93005; 96361; 96374; 99285; A9270-GY; C9113; J1956; J2405; J3490; J7030; Q9967

== ENCOUNTER → 2018-09-21 | Day surgery (SDC) | payer BC ==
[~2018-09-21] MED LIST: Lactated Ringers 1,000 ML IV SCH; Propofol 200 MG/20 ML SDV IV ONE
--- NOTE | 2018-09-21 13:54 | OR ---
DATE OF OPERATION: 09/21/2018 PREOPERATIVE DIAGNOSIS: 1. FAMILY HISTORY OF COLON CANCER. 2. RECENT COLITIS. POSTOPERATIVE DIAGNOSIS: LIKELY COLITIS, LEFT COLON. SURGEON: Roderick Webster MD PROCEDURE: FULL-LENGTH COLONOSCOPY WITH BIOPSY X5. ANESTHESIA: ALODIZE MACHINE HELPER. COMPLICATIONS: None. SPECIMEN: Biopsies x5 at distal descending colon and proximal sigmoid colon at 60 to 50 cm. FINDINGS: 1. Full-length colonoscopy. 2. A 10-cm segment of mucosal thickening with polypoid appearance, possibly representing colitis versus mass. PLAN: Follow up pending path reports. INDICATIONS: The patient has a strong family history of colon cancer. She had a recent diagnosis of colitis via CT scan and is sent for colonoscopy by Dionne Ryan. DESCRIPTION OF PROCEDURE: The patient was prepped and draped, placed in the left lateral decubitus position. A lubricated Olympus colonoscope was inserted and advanced to the cecum. Direct visualization of the ileocecal valve and appendiceal orifice were accomplished. The bowel prep was fine. Upon withdrawal, the cecum, ascending and transverse colon were unremarkable. Just past the splenic flexure and in the distal descending colon and into the proximal sigmoid colon, the patient had a 10 to 15 cm segment of likely colitis. It had a granular nodular appearance. It was slightly firm, very friable. We did do 5 biopsies through that area of colonic thickening. No other masses were seen. The rest of the sigmoid and rectosigmoid area were unremarkable. Retroflexion of the scope in the rectum showed no perianal lesions. Air was then suctioned, scope removed without complication. ABUNDIO/JAVAD /[id number]
== END ==
LOC: CC.SDS 08:58
PROVIDERS: ATTEND Family Medicine
DX: K63.3 Ulcer of intestine (principal); I10 Essential (primary) hypertension; J45.909 Unspecified asthma, uncomplicated; Z88.0 Allergy status to penicillin; Z79.82 Long term (current) use of aspirin; Z79.899 Other long term (current) drug therapy
CPT/HCPCS: J2704; J7120

== ENCOUNTER 2025-06-12 09:49 | Day surgery (SDC) | payer BC, MEDICARE ==
[2025-06-12] MEDS ORDERED: Propofol 200 MG/20 ML SDV ONE ×2 (12:08)
[2025-06-12] MEDS ORDERED: fentaNYL 50 MCG/ML SDV ONE ×2 (12:08)
[2025-06-12] MEDS ORDERED: Midazolam 1 MG/ML 2 ML SDV ONE ×2 (12:08)
[2025-06-12] MEDS ORDERED: Ketamine 200 MG/20 ML MDV ONE (12:08)
[2025-06-12] MEDS: Lactated Ringers 1,000 ML IV SCH (12:12)
== END 2025-06-12 14:15 | disposition home or self-care (01) ==
LOC: CC.SDS 09:49
PROVIDERS: ATTEND Surgery
DX: Z12.11 Encounter for screening for malignant neoplasm of colon (principal); D12.2 Benign neoplasm of ascending colon; D12.3 Benign neoplasm of transverse colon; E11.9 Type 2 diabetes mellitus without complications; F32.A Depression, unspecified; F41.9 Anxiety disorder, unspecified; E78.00 Pure hypercholesterolemia, unspecified; E03.9 Hypothyroidism, unspecified; K21.9 Gastro-esophageal reflux disease without esophagitis; Z88.8 Allergy status to other drugs, medicaments and biological substances; Z91.041 Radiographic dye allergy status; Z79.84 Long term (current) use of oral hypoglycemic drugs; Z79.899 Other long term (current) drug therapy
CPT/HCPCS: 00811; J2250; J2704; J3010; J3490; J7120